=== PATIENT | male | born 2000 | race Caucasian/White ===

== ENCOUNTER 2023-12-30 06:15 | Inpatient (IN) | payer MEDICAID ==
[2023-12-29 12:17] LABS: BASOPHILS # (AUTO) 0.1 K/uL (0.00-0.22); BASOPHILS % (AUTO) 1.1 % (0.0-2.0); EOSINOPHILS # (AUTO) 0.1 K/uL (0-0.4); HEMATOCRIT 46.3 % (36-52); HEMOGLOBIN 15.5 g/dL (12.0-18.0); LYMPHOCYTES # (AUTO) 2.9 K/uL (2.0-11.5); LYMPHOCYTES % (AUTO) 42.3 % (20.5-51.1); MEAN CORPUSCULAR HEMOGLOBIN 29 pg (27-31); MEAN CORPUSCULAR HGB CONC 34 g/dL (33-37); MEAN CORPUSCULAR VOLUME 86.7 fL (80-94); MONOCYTES # (AUTO) 0.4 K/uL (0.8-1.0); MONOCYTES % (AUTO) 6.2 % (1.7-9.3); NEUTROPHILS # (AUTO) 3.3 K/uL (1.8-7.7); NEUTROPHILS % (AUTO) 49.4 % (42.2-75.2); PLATELET COUNT (AUTO) 245 K/uL (140-450); RED BLOOD CELL COUNT(AUTO) 5.33 MIL/uL (4.20-6.10); RED CELL DISTRIBUTION WIDTH 13.7 % (11.6-13.7); WHITE BLOOD COUNT (AUTO) 6.7 K/uL (4.8-10.8)
[2023-12-29 12:36] LABS: ALBUMIN 3.9 g/dL (3.4-5.0); ANION GAP 8.2 (8-16); CALCIUM 8.9 mg/dL (8.5-10.1); CARBON DIOXIDE 30.2 mmol/L (21-32); POTASSIUM 4.4 mmol/L (3.5-5.1); TOTAL BILIRUBIN 0.4 mg/dL (0.0-1.0); TOTAL PROTEIN, SERUM 7.5 g/dL (6.4-8.2)
[~2023-12-30] VITALS: Ht 165.1 cm; Wt 78.9 kg
[2023-12-30] MEDS: BUPIVACAINE-MPF 0.25% 30 ML VIAL INJ ONE (07:17)
[2023-12-30] MEDS: LIDOCAINE/EPI 1% 1:100000 20 ML VIAL INJ ONE (07:17)
[2023-12-30] MEDS: MIDAZOLAM 5 MG/5 ML VIAL ONE (07:31)
[2023-12-30] MEDS: fentaNYL citrate 0.05 MG/ML VIAL ONE (07:31)
[2023-12-30] MEDS: ONDANSETRON 4 MG/2 ML VIAL ONE (07:32)
[2023-12-30] MEDS: LIDOCAINE 2% 100 MG/5 ML SYR IVP ONE (07:33)
[2023-12-30] MEDS: ceFAZolin 1,000 MG VIAL ONE ×2 (07:48→07:55)
[2023-12-30] MEDS: PROPOFOL 200 MG/20 ML VIAL IV ONE ×2 (08:30)
[2023-12-30] MEDS ORDERED: HYDR-5071 PO (08:40)
[2023-12-30] MEDS ORDERED: ONDANSETRON 4 MG/2 ML VIAL IV PRN (08:55)
[2023-12-30] MEDS ORDERED: MORPHINE SULFATE 4 MG/ML SYR IV PRN (08:55)
[2023-12-30] MEDS ORDERED: HYDROmorphone 1 MG/ML AMP IVP PRN ×2 (08:55→09:00)
[2023-12-30] MEDS ORDERED: MORPHINE SULFATE 2 MG/ML SYR IVP PRN (08:55)
[2023-12-30] MEDS ORDERED: MEPERIDINE 25 MG/ML SYR IVP PRN (09:00)
[2023-12-30] MEDS ORDERED: ONDANSETRON 4 MG/2 ML VIAL IVP PRN (09:00)
[2023-12-30] MEDS ORDERED: HYDROcodone/APAP 5/325 MG 1 TAB TAB PO PRN (09:25)
[2023-12-30] MEDS: PIPERACILLIN/TAZOBACTAM 3.375 GM in DEXTROSE 5% 50 ML IV SCH (13:29)
[2023-12-30 16:00] VITALS: BP 117/65; PULSE 88; RESP 18; TEMP 97.6; O2SAT 97
[2023-12-30 20:00] VITALS: BP 95/50; PULSE 68; RESP 18; TEMP 98.2; O2SAT 100
[2023-12-31 04:00] VITALS: BP 104/56; PULSE 64; RESP 18; TEMP 97.2; O2SAT 100
== END 2023-12-31 16:25 | disposition home or self-care (01) | DRG 383 ==
LOC: MDS 06:15 → MMU 06:22 → MDS 09:31 → MMU 09:31 → MDS 12:00 → UNDOADMIN 12:00
PROVIDERS: ADMIT Surgery; ATTEND Surgery
PROC: 0JB90ZZ Excision of Buttock Subcutaneous Tissue and Fascia, Open Approach (ICD-10-PCS; principal; 2023-12-30 07:30)
DX: L05.91 Pilonidal cyst without abscess (principal); L05.92 Pilonidal sinus without abscess
CPT/HCPCS: 36415; 80053; 85025; 88304; 93005; J0690; J2001; J2003; J2250; J2405; J2543; J2704; J3010; J3490; J7060